=== PATIENT | male | born 1970 | race Caucasian/White ===

== ENCOUNTER 2018-05-02 08:35 | Emergency (ER) | payer BC ==
[~2018-05-02] VITALS: Ht 182.9 cm; Wt 116.8 kg
[~2018-05-02 08:35] MED LIST: FLEXERIL10 MG PO; FLEXERIL5 MG PO; MOTRIN800 MG PO; NAPROSYN500 MG PO; NORCO 5/3251 TABLET PO; PEN-VEE K,VEET500 MG PO; PREDNISONE10 MG PO; TOBREX5 ML RIGHT EYE; TRAMADOL HCL50 MG PO
[2018-05-02 09:33] LABS: HEMOGLOBIN 13.6 G/DL (12.5-16.6); MCH 29.6 PG (29.0-34.0); PLATELET COUNT 328 K/uL (156-360); RBC DIS.WIDTH-CV 12.8 % (11.8-14.6); RBC DIS.WIDTH-SD 40.3 % (39-53); WHITE BLOOD COUNT 9.7 K/uL (4.1-10.2)
[2018-05-02 09:44] LABS: ALBUMIN 4.2 g/dL (3.2-4.8); CHLORIDE 104 mEq/L (99-109); POTASSIUM 4.3 mEq/L (3.7-5.4); SODIUM 139 mEq/L (136-147)
[2018-05-02 09:46] LABS: GLUCOSE 130 mg/dL (70-99); TOTAL PROTEIN 8.3 g/dL (6.4-8.3)
[2018-05-02 09:48] LABS: TOTAL BILIRUBIN 0.3 mg/dL (0.0-1.0)
[2018-05-02 09:50] LABS: ALKALINE PHOSPHATASE 66 IU/L (3-129); CREATININE 0.8 mg/dL (0.6-1.3); GFR ESTIMATE (CALCULATED) > 59 mL/min/ (58.99-99999)
[2018-05-02 09:51] LABS: UREA NITROGEN (BUN) 7 mg/dL (9-23)
[2018-05-02 09:52] LABS: AST (GOT) 28 IU/L (2-34)
[2018-05-02 09:53] LABS: ALT (GPT) 37 IU/L (3-49)
[2018-05-02 14:34] VITALS: BP 138/81
== END 2018-05-02 14:35 | disposition home or self-care (01) ==
LOC: EME 08:35
DX: M79.604 Pain in right leg (principal); M79.605 Pain in left leg; R60.0 Localized edema; G62.9 Polyneuropathy, unspecified; F17.200 Nicotine dependence, unspecified, uncomplicated; Z71.6 Tobacco abuse counseling; Z91.030 Bee allergy status
CPT/HCPCS: 80053; 85027; 93970; 99281; 99284